=== PATIENT | female | born 1995 | race Caucasian/White ===

== ENCOUNTER 2021-08-28 18:27 | Emergency (ER) | payer OTHER ==
[~2021-08-28] VITALS: Ht 160 cm; Wt 101.3 kg
[2021-08-28 18:27] VITALS: BP 149/82
[2021-08-28] MEDS ORDERED: MAXA10TA14 PO (18:41)
[2021-08-28] MEDS ORDERED: ONDA-83 PO (18:41)
[2021-08-28] MEDS ORDERED: NAPR-837 PO (18:41)
[2021-08-28 20:15] LABS: BASO % 0.3 % (0.0-1.0); EOS # 0.2 10^3/uL (0.0-0.5); EOS % 1.2 % (0.0-3.0); HEMATOCRIT 40.2 % (36.0-47.0); LYMPH # 2.7 10^3/uL (1.5-5.0); LYMPH % 21.5 % (24.0-44.0); MEAN CORPUSCULAR HEMOGLOBIN 26.1 pg (27.0-33.0); MEAN CORPUSCULAR HGB CONC 32.3 g/dl (32.0-36.5); MEAN CORPUSCULAR VOLUME 80.6 fl (80.0-96.0); MONO # 0.6 10^3/uL (0.0-0.8); MONO % 4.6 % (2.0-8.0); NEUTROPHILS # 9.1 10^3/uL (1.5-8.5); NEUTROPHILS % 72.1 % (36.0-66.0); PLATELET COUNT, AUTOMATED 336 10^3/uL (150-450); RED BLOOD COUNT 4.99 10^6/uL (4.00-5.40); WHITE BLOOD COUNT 12.7 10^3/uL (4.0-10.0)
[2021-08-28] MEDS ORDERED: ISOVUE-370 76% 100ML VIAL As Ordered ONE (20:38)
[2021-08-28 21:18] LABS: ALBUMIN 3.9 GM/DL (3.2-5.2); BILIRUBIN,DIRECT 0.1 MG/DL (0.0-0.2); BILIRUBIN,TOTAL 0.3 MG/DL (0.2-1.0); TOTAL PROTEIN 8.3 GM/DL (6.4-8.2)
[2021-08-28] MEDS ORDERED: AUGMENTIN 875 MG TAB PO ONE (21:50)
[2021-08-28] MEDS ORDERED: AUGM875T28 PO (21:51)
[2021-08-29] MEDS ORDERED: BACT800T5 PO ×2 (11:49→11:50)
== END 2021-08-28 22:11 | disposition home or self-care (01) ==
LOC: M ED 18:27
DX: L02.216 Cutaneous abscess of umbilicus (principal); R51.9 Headache, unspecified; G47.33 Obstructive sleep apnea (adult) (pediatric); Z79.899 Other long term (current) drug therapy
CPT/HCPCS: 36415; 74177; 80047; 80076; 83690; 84702; 85025; 99283; Q9967

== ENCOUNTER 2021-08-29 10:44 | Emergency (ER) | payer OTHER ==
[~2021-08-29] VITALS: Ht 160 cm; Wt 100.0 kg
[~2021-08-29 10:44] MED LIST: AUGM875T28 PO; MAXA10TA14 PO; NAPR-837 PO; ONDA-83 PO
[2021-08-29] MEDS ORDERED: BACTRIM 160MG/800MG DS TAB PO ONE (11:40)
[2021-08-29] MEDS ORDERED: BACT800T5 PO ×2 (11:49→11:50)
[2021-08-29 12:12] VITALS: BP 129/75
== END 2021-08-29 12:14 | disposition home or self-care (01) ==
LOC: M ED 12:03
DX: L02.216 Cutaneous abscess of umbilicus (principal); G47.33 Obstructive sleep apnea (adult) (pediatric); R51.9 Headache, unspecified; Z79.899 Other long term (current) drug therapy